=== PATIENT | female | born 1945 | race Caucasian/White ===

== ENCOUNTER 2017-07-27 06:22 | Day surgery (SDC) | payer MEDICARE, OTHER ==
[2017-07-27] MEDS ORDERED: Lactated Ringers 1,000 ML IV SCH (07:15)
[2017-07-27] MEDS ORDERED: Propofol 200 MG/20 ML SDV ONE (07:20)
[2017-07-27] MEDS ORDERED: fentaNYL 100 MCG/2 ML SDV ONE (07:20)
[2017-07-27] MEDS ORDERED: Midazolam 1 MG/ML 2 ML SDV ONE (07:21)
--- NOTE | 2017-07-27 09:53 | PROC ---
DATE OF PROCEDURE: 07/27/2017 INDICATION: Manuela is a 72-year-old female who comes in for a screening colonoscopy. She has a family history of colon cancer. Her mother had colon cancer and she is concerned. The risks and benefits were explained for her to have a colonoscopy. PROCEDURE IN DETAIL: Anesthesia was given by nurse international trade teacher. During the procedure, we used 100 mcg of fentanyl, 130 mg of propofol and 1 mg of Versed. The Olympus 180AL scope was used, was placed into the rectum, after examination of the rectum with a gloved finger, which revealed no abnormality. The tube was advanced and did get to the cecum. There was difficulty getting into the cecal pouch. There was a very sharp turn at the cecum. Upon retraction of the tube, we noted a small ulceration. No abnormality throughout the entire colon. There was an adequate prep noted. The sigmoid and rectum were unremarkable. The tube was removed. The patient tolerated the procedure well. PREOPERATIVE DIAGNOSIS: Screening for colon cancer with a family history of colon cancer. POSTOPERATIVE DIAGNOSIS: Normal colon from cecum to rectum. Routine screening should be done for this lady. Cj Marcila MD /[id number]
== END 2017-07-27 09:19 | disposition home or self-care (01) ==
LOC: JP.SDS 06:22
PROVIDERS: ATTEND Internal Medicine
DX: Z12.11 Encounter for screening for malignant neoplasm of colon (principal); K63.3 Ulcer of intestine; I10 Essential (primary) hypertension; Z80.0 Family history of malignant neoplasm of digestive organs
CPT/HCPCS: G0105; J2250; J2704; J3010; J7120

== ENCOUNTER 2021-09-14 06:55 | Day surgery (SDC) | payer MEDICARE ==
[2021-09-14] MEDS ORDERED: Propofol 200 MG/20 ML SDV ONE (07:22)
[2021-09-14] MEDS ORDERED: fentaNYL 100 MCG/2 ML SDV ONE (07:22)
[2021-09-14] MEDS ORDERED: Lactated Ringers 1,000 ML IV SCH (07:30)
[2021-09-14] MEDS ORDERED: Barium Sulfate 105% w/v Susp 1,900 ML Bottle PO ONE (11:30)
== END 2021-09-14 11:36 | disposition home or self-care (01) ==
LOC: JP.SDS 06:55
PROVIDERS: ATTEND Internal Medicine
DX: R19.5 Other fecal abnormalities (principal); K21.9 Gastro-esophageal reflux disease without esophagitis; E66.9 Obesity, unspecified; Z68.32 Body mass index [BMI] 32.0-32.9, adult
CPT/HCPCS: 74270; 74270-26; J2704; J3010; J7120

== ENCOUNTER 2024-05-19 16:40 | Emergency (ER) | payer MEDICARE ==
[2024-05-19] MEDS: Aspirin 81 MG Tab.Chew PO ONE (17:10)
[2024-05-19 17:20] LABS: BASOPHILS ABSOLUTE AUTO 0.05 K/uL (0.00-0.10); BASOPHILS PERCENT AUTO 1.1 % (0.1-1.3); EOSINOPHILS ABSOLUTE AUTO 0.08 K/uL (0.00-0.40); EOSINOPHILS PERCENT AUTO 1.7 % (0.0-5.4); HEMATOCRIT 42.3 % (34.3-46.0); HEMOGLOBIN 14.1 g/dL (11.2-15.5); IMMATURE GRAN PERCENT AUTO 0.4 % (0.0-0.7); LYMPHOCYTES ABSOLUTE AUTO 1.39 K/uL (0.8-3.3); LYMPHOCYTES PERCENT AUTO 30.3 % (11.4-47.7); MEAN CORPUSCULAR HEMOGLOBIN 30.9 pg (31.6-35.5); MEAN CORPUSCULAR HGB CONC 33.3 g/dL (31.6-35.5); MEAN CORPUSCULAR VOLUME 92.6 fL (81.4-99.0); MONOCYTES ABSOLUTE AUTO 0.42 K/uL (0.20-0.90); MONOCYTES PERCENT AUTO 9.2 % (3.3-12.6); NEUTROPHILS ABSOLUTE AUTO 2.63 K/uL (1.0-7.6); NEUTROPHILS PERCENT AUTO 57.3 % (40.0-78.1); PLATELET COUNT,PLT 200 K/uL (130-375); RED BLOOD CELL COUNT 4.57 M/uL (3.77-5.24); WHITE BLOOD CELL COUNT,WBC 4.6 K/uL (3.2-11.0)
[2024-05-19 17:30] LABS: IMMATURE GRAN ABSOLUTE AUTO 0.02 K/uL (0.00-0.23)
[2024-05-19 17:44] LABS: CALCIUM 8.8 mg/dL (8.5-10.1); CREATININE 0.9 mg/dL (0.6-1.0); EST CRCL DRUG DOSING (CG) 42.61 mL/min; POTASSIUM,K 3.5 mmol/L (3.6-5.2); TROPONIN I HIGH SENSITIVITY 6.7 pg/mL (<=60.3)
[2024-05-19 17:46] LABS: ANION GAP 13.5 mmol/L (5.0-14.0)
== END 2024-05-19 18:07 | disposition home or self-care (01) ==
LOC: JP.ED 16:40
DX: R07.9 Chest pain, unspecified (principal); E78.00 Pure hypercholesterolemia, unspecified; Z79.899 Other long term (current) drug therapy
CPT/HCPCS: 36415; 71046; 80048; 84484; 85025; 93005; 99285; A9270